=== PATIENT | male | born 1990 | race Caucasian/White ===

== ENCOUNTER 2025-04-19 12:24 | Emergency (ER) | payer OTHER, SELFPAY ==
[2025-04-19 12:34] VITALS: BP 152/69
[2025-04-19] MEDS: ZOFRAN ODT (ORALLY DISINTEGRATING) 4 MG PO (12:39)
[2025-04-19 13:04] LABS: Hematocrit 51.1 % (39.0-52.0); Hemoglobin 17.8 g/dL (13.0-18.0); Mean Corp Hgb Conc. 34.8 g/dL (33.0-37.0); Mean Corpuscular Volume 89.0 fL (80.0-94.0); Nucleated Red Blood Cells % 0 % (-); Platelet Count 275 10^3/uL (130-400); Red Cell Dist. Width 12.5 % (11.5-14.5)
[2025-04-19 13:14] LABS: ALT (SGPT) 25 U/L (0-50); AST (SGOT) 36 U/L (17-59); Albumin 5.1 g/dl (3.5-5.0); Alkaline Phosphatase 37 U/L (38-126); Blood Urea Nitrogen 23 mg/dl (9-20); Calcium 9.7 mg/dl (8.4-10.2); Carbon Dioxide 28 mmol/L (22-30); Chloride 103 mmol/L (98-107); Glucose 86 mg/dl (70-99); Potassium 5.1 mmol/L (3.5-5.1); Sodium 139 mmol/L (135-145); Total Protein 7.9 g/dl (6.3-8.2); eGFR > 60.00
--- NOTE | 2025-04-19 16:47 | ED.GENMED ---
History of Present Illness
General
Chief Complaint: Dizziness
Time Seen by Provider: 04/19/25 16:33
History of Present Illness
History of Present Illness:
34 male with history of substance abuse presents to the emergency department for evaluation of dizziness that began 4 days ago but worsened today. States that the symptoms are primarily provoked when he tries to get up from a seated or lying
position. Denies any visual changes or inability to ambulate. Mild headache and nausea when symptoms began. No chest pain or shortness of breath, denies any recent fevers. Denies any recent illicit substance use.
Past History
Past History
ED Past Medical History: HTN
ED Past Surgical History: None
Social History
Tobacco: Former smoker
Alcohol: Occasional
Drug: Cocaine, IVDA and Other (Benzodiazepines, Adderall)
Personal: Single
Living: with family
Employment: Employed
Review of Systems
Review of Systems
Allergies reviewed?: Yes
All Other Systems: ROS reviewed and negative except as documented in HPI and ROS
Phy Exam
Physical Exam
Physical Exam:
GEN: Well appearing, NAD, WDWN
HEENT: Oral mucosa moist, no scleral icterus, no nasal congestion
Cardiac: Regular rate
Lung: No respiratory distress, no tachypnea
MSK: No gross deformity or injuries
Skin: Good color, no pallor or jaundice, no rashes
Neuro: AO x3; CN II-XII grossly intact. BUE strength 5/5 in all wilks, sensation intact and symmetric. BLE strength 5/5 in all wilks, sensation intact and symmetric. Rotatory nystagmus noted bilaterally with rapid head movement/upright positioning
Psych: Calm, cooperative
Course
Orders/Labs/Results
Orders:
Orders
04/19/25 12:38
Ondansetron Orally Disint [Zofran Odt (Orally Disintegrating)] 4 mg .ROUTE .[facility]
04/19/25 12:39
Ondansetron Orally Disint [Zofran Odt (Orally Disintegrating)] 4 mg PO NOW STA
04/19/25 12:48
Complete Blood Count/With Diff Urgent
Comprehensive Metabolic Panel Urgent
04/19/25 16:47
CT Head W/o Iv Contrast Urgent
Comment:
Reason For Exam: vertigo
Meclizine [Antivert] 25 mg PO NOW STA
04/19/25 18:44
Diazepam [Valium] 5 mg PO NOW STA
Abnormal Lab Results
04/19/25
12:48
Absolute Neuts (auto) 6.6 H 10^3/uL
(1.4-6.5)
Absolute Lymphs (auto) 1.1 L 10^3/uL
(1.2-3.4)
Neutrophils % 80.1 H %
(42.2-75.2)
Lymphocytes % 13.5 L %
(20.5-51.1)
BUN 23 H mg/dl
(9-20)
Alkaline Phosphatase 37 L U/L
(38-126)
Albumin 5.1 H g/dl
(3.5-5.0)
04/19/25 12:48
04/19/25 12:48
Vital Signs
Initial and Last Documented VS:
Initial Vital Signs
Temp Pulse Resp BP Pulse Ox
98.0 F 72 16 152/69 98
04/19/25 12:34 04/19/25 12:34 04/19/25 12:34 04/19/25 12:34 04/19/25 12:34
Last Documented Vital Signs
Temp Pulse Resp BP Pulse Ox
98.0 F 58 14 139/69 97
04/19/25 12:34 04/19/25 17:30 04/19/25 17:15 04/19/25 17:00 04/19/25 17:30
MDM/Problems Addressed
MDM/Problems Addressed:
Patient does have a rotatory nystagmus when upright that fatigues when he is in the supine position. He has no other focal neurologic deficits. CT of the head was obtained due to the rotatory nature this was unremarkable however the patient is
most likely experiencing vertigo. Given his young age would suspect that BPPV due to crystal formation is less likely thus we will treat as a vestibular neuritis with a course of steroids. We did treat him with meclizine to no avail and thus
upgraded to a short course of benzodiazepines. The patient does have a prior history of benzodiazepine abuse but he and his mother are comfortable with a short-term bridge prescription until steroids can be beneficial
*Pulse Oximetry
SaO2: 98
Oxygen Mode of Delivery: Room air
Patient hypoxic: no
*Critical Care Note
Total Time (30-74mins, 75-104mins- exclusive of procedures): Not Applicable
ED Attending Note
-
Portions of this chart may have been created with voice recognition software.� Occasional wrong word or��sound alike� substitutions may have occurred due to the inherent limitations of voice recognition software.
Discharge Plan
Departure
Patient Disposition: Home (Routine Discharge)
Date of Disposition: 04/19/25
Time of Disposition: 18:44
Patient with high blood pressure during this ER visit?: No
Discharge Problem:
Vertigo
Instructions: Vertigo (a Type of Dizziness) (DC)
Prescriptions:
New
diazepam [Valium] 5 mg tablet
5 - 10 mg PO TID PRN (Reason: dizziness) Qty: 8 0RF
methylprednisolone [Medrol (Orestes)] 4 mg tablets,dose pack
See Rx Instructions .ROUTE .COMPLEX Qty: 21 0RF
Rx Instructions:
orally per package directions
No Action
clonidine HCl 0.1 mg Tablet
0.1 mg PO BID Qty: 7 0RF
Rx Instructions:
take it twice a day for 2 days
then cut it to half tab for 2 days
then take half tab for 2 days and stop
gabapentin 300 mg Capsule
300 mg PO TID Qty: 21 0RF
clonazepam [Klonopin] 1 mg tablet
2 mg PO .directed Qty: 21 0RF
Rx Instructions:
taper by 1mg every day and stop
Referrals:
NONE,* [Active, Internal Medicine]
Activity Restrictions/Additional Instructions:
Consider PT/vestibular therapy if medication does not work
Interventions
Interventions:
*Risk Screen - Suicide Last Done: 04/19/25 12:34
*General Assessment Last Done: 04/19/25 16:25
*Neglect/Abuse Screening Last Done: 04/19/25 12:34
*ED- Fall Risk Assessment Last Done: 04/19/25 16:25
*ED COVID-19 Vaccine History Last Done: 04/19/25 16:25
*Nursing Disposition Last Done: 04/19/25 19:01
ED- Neurological Assessment Last Done: 04/19/25 16:25
ED- Cardiac Assessment Last Done: 04/19/25 19:01
ED Swallowing Screen Last Done: 04/19/25 16:25
Discharge Date and Time
Discharge Date/Time: 04/19/25 19:02
Print Language: [id number]
[2025-04-19 17:00] VITALS: BP 139/69
[2025-04-19] MEDS: ANTIVERT 25 MG PO (17:00)
[2025-04-19] MEDS: VALIUM 5 MG PO (18:53)
== END 2025-04-19 19:02 | disposition home or self-care (01) ==
LOC: EMR 12:24
PROVIDERS: Emergency Medicine; EMERGENCY PHYSICIAN Emergency Medicine; FAMILY PHYSICIAN Family Medicine
DX: R42 Dizziness and giddiness (principal); I10 Essential (primary) hypertension; Z87.891 Personal history of nicotine dependence; H55.09 Other forms of nystagmus
CPT/HCPCS: 99284; 70450; 80053; 85025